=== PATIENT | female | born 1960 | race Caucasian/White ===

== ENCOUNTER → 2016-03-19 | Outpatient (CLI) | payer BC ==
--- NOTE | 2016-03-24 15:43 | CT ---
EXAMINATION TYPE: CT chest w con DATE OF EXAM: 03/19/2016 4:11 PM COMPARISON: Prior chest CT dated 04 April 2012 HISTORY: Patient has no complaints at time of study. Follow up study for known lung nodules. CT DLP: 107.7 mGycm Automated exposure control for dose reduction was used. CONTRAST: CT scan of the chest is performed with IV Contrast, patient injected with 100 mL of Omnipaque 300. FINDINGS: LUNGS: The lungs are stable in appearance, nodularity in the subpleural and parenchymal locations the right chest is unchanged., there is no concerning parenchymal mass or nodule identified. There is no pleural effusion or pneumothorax seen. The tracheobronchial tree is patent. MEDIASTINUM: There are no greater than 1 cm hilar or mediastinal lymph nodes. No pericardial effusi on is seen. AORTA: No additional significant abnormality is seen. OTHER: Bilateral breast prostheses are again noted. Posterior diaphragmatic hernia on the right cont ains fat. Some prominence of the distal common bile duct not significantly changed. This is incomplet marlena evaluated. The liver shows low attenuation similar to prior exam. IMPRESSION: Essentially stable exam.
== END | disposition home or self-care (01) ==
LOC: RADCTMAIN 15:45
PROVIDERS: ATTEND Family Medicine
DX: R91.8 Other nonspecific abnormal finding of lung field (principal)
CPT/HCPCS: 71260; Q9967

== ENCOUNTER → 2016-08-27 | Outpatient (CLI) | payer BC ==
--- NOTE | 2016-08-27 09:41 | MR ---
EXAMINATION TYPE: MR cervical spine wo/w con DATE OF EXAM: 08/27/2016 COMPARISON: 06/05/2014 HISTORY: DDD csp, rt arm numbness COMPARISON: 06/05/2014 TECHNIQUE: Multiplanar, multisequence images of the cervical spine were acquired utilizing 10 mL intravenous Mul tiHance gadolinium contrast. Diffusion weighted imaging was performed. C2-C3: No evidence for degenerative disc disease. No disc bulge/herniation or protrusion. No Canal stenosis. Foramina are patent bilaterally. C3-C4: No evidence for degenerative disc disease. No disc bulge/herniation or protrusion. No Canal stenosis. Foramina are patent bilaterally. C4-C5: Susceptibility artifact limits evaluation of the anterior thecal sac. Small amount of disc bul ge is suspected potentially with cord contact. Cord deformity however is not identified. The foramen are patent. C5-C6: Mild disc bulging is anterior thecal sac contact. Uncovertebral joint hypertrophy contributes to moderate bilateral foraminal stenosis. No spinal canal stenosis or cord contact is evident. C6-C7: Left paracentral asymmetric disc bulge is present with mild anterior thecal sac compression. C ord contact is evident. No spinal canal stenosis present. Uncovertebral joint hypertrophy contributes to moderate left foraminal stenosis. C7-T1: No evidence for degenerative disc disease. No disc bulge/herniation or protrusion. No Canal stenosis. Foramina are patent bilaterally. Cervical segments are intact. There is normal alignment. No abnormal enhancement is evident. There a ppears to be some mild increased signal within the spinal cord on the sagittal plane images posterior to the C6-C7 level. This is not identified on post contrast imaging or on axial T2-weighted sequence s and may be artifact. No cord expansion or myelomalacia is evident. Craniovertebral junction relatio nships are within normal limits. IMPRESSION: Possible signal abnormality within the spinal cord posterior to the C6-7 level. This is identified on sagittal T2-weighted images only and could be artifact. 2. Post anterior cervical fusion C4-C6. 3. Susceptibility artifact limits the C4-5 level. 4. No spinal canal stenosis evident. Some disc bulging in the left paracentral region at C6-7 appears to be present
== END | disposition home or self-care (01) ==
LOC: RADMRIMAIN 07:46
PROVIDERS: ATTEND Family Medicine
DX: M50.30 Other cervical disc degeneration, unspecified cervical region (principal); Z98.1 Arthrodesis status
CPT/HCPCS: 72156; A9577

== ENCOUNTER → 2017-07-25 | Outpatient (CLI) | payer BC ==
--- NOTE | 2017-07-27 09:10 | MM ---
Reason for exam: screening (asymptomatic). Last mammogram was performed 2 years and 2 months ago. History: Saline implants in both breasts, 2006. Took hormonal contraceptives for 1 year. Physical Findings: A clinical breast exam by your physician is recommended on an annual basis and results should be correlated with mammographic findings. MG 3D Screen Mammo Imp/Cad Bilateral CC and MLO view(s) were taken. SIO view(s) were taken of the right breast. ID and spot compression XCCM view(s) were taken of the left breast. Prior study comparison: May 30, 2015, bilateral MG screening mammo implant/CAD. November 25, 2011, CAD bilateral diagnostic mammogram. Stable bilateral retropectoral saline implants. Diffuse punctate calcifications greater in the left breast. No significant changes when compared with prior studies. ASSESSMENT: Negative, BI-RAD 1 RECOMMENDATION: Routine screening mammogram of both breasts in 1 year.
== END | disposition home or self-care (01) ==
LOC: RADMAMWWP 09:04
PROVIDERS: ATTEND Family Medicine
DX: Z12.31 Encounter for screening mammogram for malignant neoplasm of breast (principal); Z98.82 Breast implant status
CPT/HCPCS: 77063; 77067

== ENCOUNTER → 2021-02-05 | Outpatient (CLI) | payer BC ==
--- NOTE | 2021-02-06 12:01 | MM ---
Reason for exam: screening (asymptomatic). Last mammogram was performed 3 years and 6 months ago. History: Patient has history of other cancer at age 55. Saline implants in both breasts, 2006. Took hormonal contraceptives for 1 year. Physical Findings: A clinical breast exam by your physician is recommended on an annual basis and results should be correlated with mammographic findings. MG 3D Screen Mammo Imp/Cad Bilateral CC and MLO view(s) were taken. Prior study comparison: July 25, 2017, bilateral MG 3d screen mammo imp/cad. May 30, 2015, bilateral MG screening mammo implant/CAD. The breast tissue is extremely dense which could obscure a lesion on mammography. There are benign appearing round calcifications bilaterally. There is no dominant lesion. Bilateral subpectoral implants. ASSESSMENT: Benign, BI-RAD 2 RECOMMENDATION: Routine screening mammogram of both breasts in 1 year.
== END | disposition home or self-care (01) ==
LOC: RADMAMWWP 08:31
PROVIDERS: ATTEND Family Medicine
DX: Z12.31 Encounter for screening mammogram for malignant neoplasm of breast (principal); Z85.89 Personal history of malignant neoplasm of other organs and systems
CPT/HCPCS: 77063; 77067

== ENCOUNTER → 2021-02-10 | Outpatient (CLI) | payer BC ==
--- NOTE | 2021-02-10 09:04 | MR ---
EXAMINATION TYPE: MR cervical spine wo/w con DATE OF EXAM: 02/10/2021 COMPARISON: MR cervical spine 08/27/2016 HISTORY: Neck pain, headaches TECHNIQUE: Multiplanar, multisequence images of the cervical spine were acquired without contrast and with 6 mL intravenous Gadavist gadolinium contrast. Diffusion weighted imaging was performed. C2-C3: Minimal anterolisthesis grade 1 C2-3, some mild right-sided foraminal encroachment due to unco vertebral joint hypertrophy suspected. There is no significant spinal stenosis or evident disc hernia tion. Question some increased signal on T2-weighted sequences within the posterior aspect of the cord to the right of midline, axial image 67, not seen on prior exam C3-C4: No significant spinal stenosis or foraminal encroachment. There may be calcification along the disc space. C4-C5: Posterior session) complex causes mild anterior mass effect on the thecal sac. No significant spinal stenosis or foraminal encroachment. C5-C6: Bilateral foraminal encroachment due to uncovertebral joint hypertrophy and facet arthropathy is again noted. Endplate disc complex extends towards the right neural foramen similar to prior exam, there is anterolateral aspect of the thecal sac right greater than left, only mild spinal stenosis. C6-C7: There is abnormal increased signal on T2-weighted sequences within the posterior aspect of the cervical cord similar to prior exam, mild spinal stenosis, posterior extension and disc complex caus ing anterior mass effect on thecal sac. Left-sided foraminal encroachment is present due to uncoverte bral joint hypertrophy, facet arthropathy greater than right. C7-T1: The cord signal changes at the posterior aspect of the cord extend to C7-T1 level. No signific ant spinal stenosis or of a disc herniation. Minimal anterolisthesis grade 1 noted. No foraminal encr oachment. Cervical segments are unchanged, postop change noted at C3-4, anterior cervical fusion and discectomy change at C5-C7, there is multilevel spondylosis, susceptibility artifact due to patient's hardware. There is stable alignment. There is disc height loss of the intervertebral levels C4-5, C5-6, C6-7 and C7-T1, associated spondylosis, endplate discogenic marrow signal change, cervical vertebral yumi s show preserved height Craniovertebral junction relationships are stable. No abnormal enhancement fo llowing contrast administration. IMPRESSION: Stable postoperative findings, possible myelomalacia in the cervical cord at C6-7 similar in appearan ce, questionable interval myelomalacia within the cervical cord at C2-3 posteriorly. Degenerative dis c disease, multilevel foraminal encroachment.
== END | disposition home or self-care (01) ==
LOC: RADMRIMAIN 07:27
PROVIDERS: ATTEND Family Medicine
DX: M48.02 Spinal stenosis, cervical region (principal); M47.812 Spondylosis without myelopathy or radiculopathy, cervical region; M43.12 Spondylolisthesis, cervical region; G95.89 Other specified diseases of spinal cord
CPT/HCPCS: 72156; A9585

== ENCOUNTER → 2022-09-16 | Outpatient (CLI) | payer BC ==
--- NOTE | 2022-09-16 21:29 | MR ---
EXAMINATION TYPE: MR cervical spine wo con DATE OF EXAM: 09/16/2022 COMPARISON: 10/26/2021 HISTORY: Pain and numbness, prior surgery CONTRAST: Performed utilizing 0 mL intravenous Gadavist gadolinium contrast. TECHNIQUE: Multiplanar multiecho imaging on a 3.0 Johanny magnet is performed through the cervical spin e. Susceptibility artifact is within the cervical spine causing some limitation on the numbering of t he levels. FINDINGS: The craniovertebral junction is normal. Vertebral body alignment is normal. There is a be some increased signal centrally and posteriorly within the spinal cord at the C6-7 leve l. Correlate for myelomalacia. Consider multiple sclerosis although this is less typical location. Th is measures approximately 0.8 cm in length. C7-T1: No focal disc herniation or significant disc bulge is evident. No spinal canal stenosis or n eural foraminal stenosis is present. C6-7: No focal disc herniation or significant disc bulge is evident. No spinal canal stenosis or ivan ral foraminal stenosis is present. C5-6: No focal disc herniation or significant disc bulge is evident. No spinal canal stenosis. Uncov ertebral joint hypertrophy is present on the left with moderate foraminal narrowing. C4-5: No focal disc herniation or significant disc bulge is evident. No spinal canal stenosis or ivan ral foraminal stenosis is present. C3-4: No focal disc herniation or significant disc bulge is evident. No spinal canal stenosis is pre sent. Some right foraminal narrowing may be present. C2-3: No focal disc herniation or significant disc bulge is evident. No spinal canal stenosis or ivan ral foraminal stenosis is present. IMPRESSIONS: 1. There may be a posterior central area of myelomalacia within the spinal cord posterior to the C6-7 disc level. This may be developing from recent MRI. 2. Uncovertebral joint hypertrophy causing moderate left C5-6 foraminal narrowing some milder right f oraminal narrowing at C3-4. 3. Postsurgical changes C3-C6
== END | disposition home or self-care (01) ==
LOC: RADMRIMAIN 14:20
PROVIDERS: ATTEND Neurological Surgery
DX: M48.02 Spinal stenosis, cervical region (principal); M47.812 Spondylosis without myelopathy or radiculopathy, cervical region; G95.89 Other specified diseases of spinal cord; Z98.890 Other specified postprocedural states
CPT/HCPCS: 72141

== ENCOUNTER → 2024-01-11 | Outpatient (CLI) | payer BC ==
--- NOTE | 2024-01-16 11:07 | MM ---
Reason for Exam: Screening (asymptomatic). Last mammogram was performed 2 year(s) and 11 month(s) ago. Patient History: Menarche at age 15. First Full-Term at age 29. Postmenopausal. Other cancer, age 55. Patient used Hormonal Contraceptives for 1 year. 2006, Bilateral Implants. Risk Values: Yolande 5 year model risk: 1.6%. NCI Lifetime model risk: 7.9%. Prior Study Comparison: 05/30/2015 Bilateral Screening Mammogram, [facility]. 07/25/2017 Bilateral Screening Mammogram, [facility]. 02/05/2021 Bilateral Screening Mammogram, [facility]. Tissue Density: There are scattered areas of fibroglandular density. Findings: Analyzed By CAD. Bilateral breast implants appear intact. Right breast: There is no suspicious group of microcalcifications or new suspicious mass. Left breast: There is no suspicious group of microcalcifications or new suspicious mass. Overall Assessment: Negative, BI-RAD 1 Management: Screening Mammogram of both breasts in [address] [facility] will attempt to contact patient to return for supplemental views and ultrasound if indicated. Patient should continue monthly self-breast exams. A clinical breast exam by your physician is recommended on an annual basis. This exam should not preclude additional follow-up of suspicious palpable abnormalities. Note on Yolande scores and lifetime risk: 1. A Yolande score greater than 3% is considered moderate risk. If this is the case, consider specialist referral to assess eligibility for a risk reducing agent. 2. If overall lifetime risk for the development of breast cancer is 20% or higher, the patient may qualify for future screening with alternating mammogram and breast MRI. [facility], , 01/16/2024 11:05 AM. Electronically signed and approved by: Jay Jay Crowe DO
== END | disposition home or self-care (01) ==
LOC: RADMAMWWP 11:37
PROVIDERS: ATTEND Family Medicine
DX: Z12.31 Encounter for screening mammogram for malignant neoplasm of breast (principal); Z78.0 Asymptomatic menopausal state; Z98.82 Breast implant status; R92.323 Mammographic fibroglandular density, bilateral breasts
CPT/HCPCS: 77063; 77067